=== PATIENT | female | born 1960 | race African-American/Black ===

== ENCOUNTER 2016-07-09 19:36 | Emergency (ER) | payer SELFPAY ==
[~2016-07-09] VITALS: Ht 167.6 cm; Wt 72.6 kg
[2016-07-09 19:40] VITALS: BP 132/88
[2016-07-09] MEDS ORDERED: NAPR500T3 PO (19:56)
--- NOTE | 2016-07-09 19:56 | PHYS DOC ---
Adult General Chief Complaint Chief Complaint: BREAST PAIN/INJURY HPI HPI Patient is a 55 year old female with a pacemaker presents complaining of pain in her right breast that is been present all day today. Pain is throbbing and constant. She feels a little swollen mass just above and deep to the areola. She denies any drainage or redness. No injury. No cough, fever, shortness of breath. No other acute complaints. She does not have a primary care doctor. Review of Systems Review of Systems Constitutional: Denies fever or chills Eyes: Denies change in visual acuity, redness, or eye pain HENT: Denies nasal congestion or sore throat Respiratory: Denies cough or shortness of breath Cardiovascular: Denies chest pain. GI: Denies abdominal pain, nausea, vomiting, bloody stools or diarrhea : Denies dysuria or hematuria Musculoskeletal: Denies back pain or joint pain. Painful mass in right breast. Integument: Denies rash or skin lesions Neurologic: Denies headache, focal weakness or sensory changes Physical Exam Physical Exam Constitutional: Well developed, well nourished, no acute distress, non-toxic appearance. Patient still strongly of alcohol and appears to be heavily intoxicated. HENT: Normocephalic, atraumatic, bilateral external ears normal, oropharynx moist, no oral exudates, nose normal. Eyes: PERRLA, EOMI, conjunctiva normal, no discharge. Neck: Normal range of motion, no tenderness, supple, no stridor. Cardiovascular:Heart rate regular rhythm, no murmur Lungs & Thorax: Bilateral breath sounds clear to auscultation. There is a discrete, firm, tender right breast mass about the size of a golf ball just superior and deep to the area oh. There is no overlying skin changes. No drainage or redness. Abdomen: Bowel sounds normal, soft, no tenderness, no masses, no pulsatile masses. Skin: Warm, dry, no erythema, no rash. Back: Normal to inspection. Extremities: No tenderness, no cyanosis, no edema. Neurologic: Alert and oriented X 3, normal motor function, no focal deficits noted. Psychologic: Intoxicated. EKG EKG [] Radiology/Procedures Radiology/Procedures [] Course & Med Decision Making Course & Med Decision Making Pertinent Labs and Imaging studies reviewed. (See chart for details) Patient is a painful right breast mass that she first noticed today. She also appears to be heavily intoxicated. I have advised that she needs to have close primary care follow-up with an ultrasound and/or mammogram and biopsy to investigate this mass further. I did express to her that given her family history of breast cancer that she reports in her mother, she should take this very seriously and follow-up closely. I'm going to write her for naproxen, and I also advised heat and/or ice for local pain control. Return precautions were discussed and all questions were answered prior to discharge. Dragon Disclaimer Dragon Disclaimer This electronic medical record was generated, in whole or in part, using a voice recognition dictation system. Departure Departure Impression: Primary Impression: mastalgia Additional Impression: Breast mass, right Disposition: 01 HOME, SELF-CARE Condition: STABLE Patient Instructions: Breast Self-Exam, [id number], Breast Tenderness Additional Instructions: You have a tender mass almost the size of a golf ball in her right breast. This may simply be a cyst or a benign growth, but it could also represent breast cancer. Given her family history of breast cancer you are at higher risk. You need to follow up with a primary care provider as soon as possible to have this further investigated. Do not put this off for much longer. If you are able to catch breast cancer early, and outcomes are much better then if you wait until the cancer has had a chance to spread. Take the prescribed naproxen twice daily with meals as needed for pain, new can also take Tylenol hysterectomy bottle in addition to this. Try heating pad or ice packs on the breast to see which works best to relieve any localized breast pain. Scripts Naproxen 500 Mg Tablet1 Tab PO BID PRN PAIN #60 TAB Ref 0 Prov:NATHAN CAMPBELL MD 07/09/16 Problem Qualifiers NATHAN CAMPBELL MD Jul 09, 2016 19:56
[2016-07-09] MEDS ORDERED: KETOROLAC TROMETHAMINE 30 MG/ML SYRINGE. IV ONE (20:00)
== END 2016-07-09 20:11 | disposition home or self-care (01) ==
LOC: ER 19:36
DX: N63 Unspecified lump in breast (principal)
CPT/HCPCS: 96374; 99284; J1885

== ENCOUNTER 2019-04-13 18:17 | Emergency (ER) | payer SELFPAY ==
[~2019-04-13] VITALS: Ht 167.6 cm; Wt 90.7 kg
[~2019-04-13 18:17] MED LIST: NAPR-514 PO
--- NOTE | 2019-04-13 19:33 | PHYS DOC ---
Past Medical History Past Medical History: No Pertinent History Additional Past Medical Histor: pt is not a good historian Past Surgical History: Pacemaker Additional Information: 1 pack/day Alcohol Use: Heavy Drug Use: None Adult General Chief Complaint Chief Complaint: MECHANICAL FALL HPI HPI 58-year-old female presents to the emergency department after fall proximal in 24 hours ago. She worked all day today subsequent had some alcohol now intoxicated presents to the ER with complaints of shortness of breath. She cannot give me any detail with regards to her mechanical fall yesterday unable time she lost consciousness unable tell me she had her head unable tell exactly what hurts. Patient denies nausea/vomiting. Patient denies headache. States she cannot breath. Nothing makes her pain worse, nothing makes her pain better. Review of Systems Review of Systems Constitutional: Denies fever or chills [] Eyes: Denies change in visual acuity, redness, or eye pain [] HENT: Denies nasal congestion or sore throat [] Respiratory: shortness of breath Cardiovascular: No additional information not addressed in HPI [] GI: Denies abdominal pain, nausea, vomiting, bloody stools or diarrhea [] : Denies dysuria or hematuria [] Musculoskeletal: Denies back pain or joint pain [] Integument: Denies rash or skin lesions [] Neurologic: Denies headache, focal weakness or sensory changes [] Endocrine: Denies polyuria or polydipsia [] Patient is intoxicated - ROS is unreliable All other systems were reviewed and found to be within normal limits, except as documented in this note. Current Medications Current Medications Current Medications Medications (Trade) Dose Ordered Sig/Coleen Start Time Stop Time Status Last Admin Dose Admin Info (CONTRAST GIVEN -- Rx MONITORING) 1 each PRN DAILY PRN 04/13/19 21:15 04/15/19 21:14 Iohexol (Omnipaque 300 Mg/ml) 75 ml 1X ONCE 04/13/19 21:00 04/13/19 21:05 DC 04/13/19 21:26 75 ML Potassium Chloride (Klor-Con) 40 meq 1X ONCE 04/13/19 21:00 04/13/19 21:05 DC 04/13/19 21:13 40 MEQ Allergies Allergies Allergies Coded Allergies Type Severity Reaction Last Updated Verified No Known Drug Allergies 07/09/16 No Physical Exam Physical Exam Constitutional: Well developed, well nourished, no acute distress, non-toxic appearance. [] HENT: Normocephalic, atraumatic, bilateral external ears normal, oropharynx moist, no oral exudates, nose normal. [] Eyes: PERRLA, EOMI, conjunctiva normal, no discharge. [] Neck: Normal range of motion, no tenderness, supple, no stridor. [] Cardiovascular:Heart rate regular rhythm, no murmur [] Lungs & Thorax: Bilateral breath sounds clear to auscultation [] Abdomen: Bowel sounds normal, soft, no tenderness, no masses, no pulsatile masses. [] Skin: Warm, dry, no erythema, no rash. [] Back: No tenderness, no CVA tenderness. [] Extremities: No tenderness, no cyanosis, no clubbing, ROM intact, no edema. [] Neurologic: Alert and oriented X 3, no focal deficits noted. [] Psychologic: Affect normal, judgement normal, mood normal. [] Current Patient Data Vital Signs Vital Signs Date Time Temp Pulse Resp B/P (MAP) Pulse Ox O2 Delivery O2 Flow Rate FiO2 04/13/19 21:00 91 20 97 04/13/19 18:50 98.0 111/79 (90) Room Air 98.0 Lab Values Laboratory Tests Test 04/13/19 20:03 White Blood Count 6.5 x10^3/uL (4.0-11.0) Red Blood Count 3.59 x10^6/uL (3.50-5.40) Hemoglobin 12.6 g/dL (12.0-15.5) Hematocrit 36.6 % (36.0-47.0) Mean Corpuscular Volume 102 fL (79-100) H Mean Corpuscular Hemoglobin 35 pg (25-35) Mean Corpuscular Hemoglobin Concent 35 g/dL (31-37) Red Cell Distribution Width 15.4 % (11.5-14.5) H Platelet Count 149 x10^3/uL (140-400) Neutrophils (%) (Auto) 45 % (31-73) Lymphocytes (%) (Auto) 45 % (24-48) Monocytes (%) (Auto) 7 % (0-9) Eosinophils (%) (Auto) 2 % (0-3) Basophils (%) (Auto) 1 % (0-3) Neutrophils # (Auto) 2.9 x10^3/uL (1.8-7.7) Lymphocytes # (Auto) 3.0 x10^3/uL (1.0-4.8) Monocytes # (Auto) 0.5 x10^3/uL (0.0-1.1) Eosinophils # (Auto) 0.1 x10^3/uL (0.0-0.7) Basophils # (Auto) 0.0 x10^3/uL (0.0-0.2) Sodium Level 149 mmol/L (136-145) H Potassium Level 3.2 mmol/L (3.5-5.1) L Chloride Level 108 mmol/L (98-107) H Carbon Dioxide Level 25 mmol/L (21-32) Anion Gap 16 (6-14) H Blood Urea Nitrogen 21 mg/dL (7-20) H Creatinine 1.1 mg/dL (0.6-1.0) H Estimated GFR (Cockcroft-Gault) 61.5 BUN/Creatinine Ratio 19 (6-20) Glucose Level 100 mg/dL (70-99) H Calcium Level 9.2 mg/dL (8.5-10.1) Total Bilirubin 0.2 mg/dL (0.2-1.0) Aspartate Amino Transferase (AST) 82 U/L (15-37) H Alanine Aminotransferase (ALT) 57 U/L (14-59) Alkaline Phosphatase 80 U/L (46-116) Total Protein 7.9 g/dL (6.4-8.2) Albumin 3.9 g/dL (3.4-5.0) Albumin/Globulin Ratio 1.0 (1.0-1.7) Laboratory Tests 04/13/19 20:03 Laboratory Tests 04/13/19 20:03 EKG EKG [] Radiology/Procedures Radiology/Procedures [facility] [address] [place], [place] [id number] IMAGING REPORT Signed PATIENT: BENJI SALINAS ACCOUNT: [id number] : 1960 LOCATION: ER AGE: 58 SEX: F EXAM STATUS: REG ER ORD. PHYSICIAN: GUERITA BARNETT MD REASON: fall unknown LOC, Intoxication PROCEDURE: CT CHEST ABD PELVIS W/CONTRAST EXAM: CT OF THE CHEST, ABDOMEN AND PELVIS WITH CONTRAST. HISTORY: Fall, trauma. TECHNIQUE: Computed tomography of the chest, abdomen and pelvis was performed after the intravenous administration of iodinated contrast. COMPARISON: None. FINDINGS: Bone windows reveal no suspicious lesions. There are no pathologically enlarged mediastinal or axillary lymph nodes. There is no pleural or pericardial effusion. The heart is mildly enlarged. A right-sided pacemaker has its leads in the right atrium and right ventricle. There are surgical clips along the anterior base of the neck. Bone windows reveal mild to moderate centrilobular emphysema in the apices. A calcified granuloma is noted in the right middle lobe. There is bilateral dependent atelectasis. Diffuse hepatic steatosis is severe. There are calcified granulomas in the spleen. The pancreatic duct is upper limits of normal caliber at 3 mm. A left renal cyst measures 1.6 cm. The gallbladder is decompressed. The right kidney and adrenal glands are unremarkable. The appendix is not inflamed. There is no small bowel obstruction. There is no free fluid or air. IMPRESSION: 1. No evidence of acute injury to the chest, abdomen or pelvis. 2. Mild cardiomegaly. 3. Mild to moderate centrilobular emphysema 4. Severe diffuse hepatic steatosis. *One or more of the following individualized dose reduction techniques were utilized for this examination: 1. Automated exposure control. 2. Adjustment of the mA and/or kV according to patient size. 3. Use of iterative reconstruction technique. Electronically signed by: Melvin Rees MD (04/13/2019 9:51 PM) [facility] DICTATED and SIGNED BY: HOANG REES MD DATE: 04/13/192150 [] [facility] [address] [place] [address] IMAGING REPORT Signed PATIENT: BENJI SALINAS ACCOUNT: [id number] : 1960 LOCATION: ER AGE: 58 SEX: F EXAM STATUS: REG ER ORD. PHYSICIAN: GUERITA BARNETT MD REASON: fall unknown LOC, Intoxication PROCEDURE: CT HEAD AND CERVICAL SPINE WO EXAM: 1. CT HEAD WITHOUT CONTRAST. 2. CT CERVICAL SPINE WITHOUT CONTRAST. HISTORY: Fall, altered mental status. TECHNIQUE: Computed tomography of the head and cervical spine was performed without intravenous contrast. COMPARISON: None. FINDINGS: There is no intracranial hemorrhage. Hypoattenuation within the white matter indicates moderate chronic microangiopathic change. The ventricles are normal in size and position. The visualized paranasal sinuses appear clear. The orbits are unremarkable. The temporal bones are unremarkable. The calvarium reveals no suspicious lesions. Alignment is maintained. The craniocervical junction is unremarkable. No fractures are identified. Degenerative disc disease is moderate at C5-6 and minimal elsewhere. There is no prevertebral soft tissue swelling. At C2-3, there is no significant stenosis. At C3-4, there is a small posterior disc bulge. Uncovertebral osteoarthritis is mild bilaterally. Neural foraminal stenosis is moderate on the right. At C4-5, there is a small posterior disc bulge. Uncovertebral osteoarthritis is moderate bilaterally. Neural foraminal stenosis is moderate on the right. At C5-6, there is a moderate posterior disc bulge. Central canal stenosis appears moderate. Uncovertebral osteoarthritis is moderate to severe on the left and mild on the right. Neural foraminal stenosis appears moderate to severe on the left. At C6-7, there is no significant stenosis. Right pacemaker is partially visualized. There is mild to moderate centrilobular emphysema in the apices. IMPRESSION: 1. No acute intracranial findings. 2. Moderate chronic microangiopathic white matter change. 3. No cervical fracture or malalignment. 4. Central canal stenosis appears moderate at C5-6. Neural foraminal stenosis is up to moderate to severe on the left at this level. MRI could further assess stenosis if there is persistent concern. *One or more of the following individualized dose reduction techniques were utilized for this examination: 1. Automated exposure control. 2. Adjustment of the mA and/or kV according to patient size. 3. Use of iterative reconstruction technique. Electronically signed by: Melvin Rees MD (04/13/2019 9:40 PM) [facility] DICTATED and SIGNED BY: HOANG REES MD DATE: 04/13/192139 Course & Med Decision Making Course & Med Decision Making Pertinent Labs and Imaging studies reviewed. (See chart for details) []58-year-old female presents to the emergency department after fall proximal in 24 hours ago. She worked all day today subsequent had some alcohol now intoxicated presents to the ER with complaints of shortness of breath. She cannot give me any detail with regards to her mechanical fall yesterday unable t jordan she lost consciousness unable tell me she had her head unable tell exactly what hurts. Patient denies nausea/vomiting. Patient denies headache. States she cannot breath. Nothing makes her pain worse, nothing makes her pain better. Dragon Disclaimer Dragon Disclaimer This electronic medical record was generated, in whole or in part, using a voice recognition dictation system. Departure Departure Impression: Primary Impression: Fall Additional Impression: Intoxication Disposition: HOME, SELF-CARE Condition: STABLE Referrals: NO PCP (PCP) Patient Instructions: Alcohol Intoxication, [id number], Fall Prevention and Home Safety, [id number] Additional Instructions: Recommend follow up with PCP 3 - 5 days Return to the ER with worsening symptoms, intractable pain, fever, altered mental status Tylenol/Motrin as needed for pain Problem Qualifiers Primary Impression: Fall Encounter type: initial encounter Qualified Codes: W19.XXXA - Unspecified fall, initial encounter GUERITA BARNETT MD Apr 13, 2019 19:33
[2019-04-13 20:26] LABS: BASO % 1 % (0-3); EOS # 0.1 x10^3/uL (0.0-0.7); EOS % 2 % (0-3); HEMATOCRIT 36.6 % (36.0-47.0); HEMOGLOBIN 12.6 g/dL (12.0-15.5); LYMPH % 45 % (24-48); MEAN CORPUSCULAR HEMOGLOBIN 35 pg (25-35); MEAN CORPUSCULAR HGB CONC 35 g/dL (31-37); MEAN CORPUSCULAR VOLUME 102 fL (79-100); MONO # 0.5 x10^3/uL (0.0-1.1); MONO % 7 % (0-9); NEUT # 2.9 x10^3/uL (1.8-7.7); NEUT % 45 % (31-73); PLATELET COUNT 149 x10^3/uL (140-400); RED BLOOD COUNT 3.59 x10^6/uL (3.50-5.40); RED CELL DISTRIBUTION WIDTH 15.4 % (11.5-14.5); WHITE BLOOD COUNT 6.5 x10^3/uL (4.0-11.0)
[2019-04-13 20:48] LABS: ALBUMIN 3.9 g/dL (3.4-5.0); CALCIUM 9.2 mg/dL (8.5-10.1); CREATININE 1.1 mg/dL (0.6-1.0); GFR 61.5; POTASSIUM 3.2 mmol/L (3.5-5.1); TOTAL BILIRUBIN 0.2 mg/dL (0.2-1.0); TOTAL PROTEIN 7.9 g/dL (6.4-8.2)
[2019-04-13] MEDS ORDERED: POTASSIUM CHLORIDE 20 MEQ TABLET.ER. PO ONE (21:00)
[2019-04-13] MEDS ORDERED: IOHEXOL 300 MG/ML 100ML VIAL. IV ONE (21:00)
[2019-04-13] MEDS ORDERED: CONTRAST GIVEN. MC PRN (21:15)
--- NOTE | 2019-04-13 21:43 | RAD ---
EXAM: 1. CT HEAD WITHOUT CONTRAST. 2. CT CERVICAL SPINE WITHOUT CONTRAST. HISTORY: Fall, altered mental status. TECHNIQUE: Computed tomography of the head and cervical spine was performed without intravenous contrast. COMPARISON: None. FINDINGS: There is no intracranial hemorrhage. Hypoattenuation within the white matter indicates moderate chronic microangiopathic change. The ventricles are normal in size and position. The visualized paranasal sinuses appear clear. The orbits are unremarkable. The temporal bones are unremarkable. The calvarium reveals no suspicious lesions. Alignment is maintained. The craniocervical junction is unremarkable. No fractures are identified. Degenerative disc disease is moderate at C5-6 and minimal elsewhere. There is no prevertebral soft tissue swelling. At C2-3, there is no significant stenosis. At C3-4, there is a small posterior disc bulge. Uncovertebral osteoarthritis is mild bilaterally. Neural foraminal stenosis is moderate on the right. At C4-5, there is a small posterior disc bulge. Uncovertebral osteoarthritis is moderate bilaterally. Neural foraminal stenosis is moderate on the right. At C5-6, there is a moderate posterior disc bulge. Central canal stenosis appears moderate. Uncovertebral osteoarthritis is moderate to severe on the left and mild on the right. Neural foraminal stenosis appears moderate to severe on the left. At C6-7, there is no significant stenosis. Right pacemaker is partially visualized. There is mild to moderate centrilobular emphysema in the apices. IMPRESSION: 1. No acute intracranial findings. 2. Moderate chronic microangiopathic white matter change. 3. No cervical fracture or malalignment. 4. Central canal stenosis appears moderate at C5-6. Neural foraminal stenosis is up to moderate to severe on the left at this level. MRI could further assess stenosis if there is persistent concern. *One or more of the following individualized dose reduction techniques were utilized for this examination: 1. Automated exposure control. 2. Adjustment of the mA and/or kV according to patient size. 3. Use of iterative reconstruction technique. Electronically signed by: Melvin Rees MD (04/13/2019 9:40 PM) [facility]
--- NOTE | 2019-04-13 21:54 | RAD ---
EXAM: CT OF THE CHEST, ABDOMEN AND PELVIS WITH CONTRAST. HISTORY: Fall, trauma. TECHNIQUE: Computed tomography of the chest, abdomen and pelvis was performed after the intravenous administration of iodinated contrast. COMPARISON: None. FINDINGS: Bone windows reveal no suspicious lesions. There are no pathologically enlarged mediastinal or axillary lymph nodes. There is no pleural or pericardial effusion. The heart is mildly enlarged. A right-sided pacemaker has its leads in the right atrium and right ventricle. There are surgical clips along the anterior base of the neck. Bone windows reveal mild to moderate centrilobular emphysema in the apices. A calcified granuloma is noted in the right middle lobe. There is bilateral dependent atelectasis. Diffuse hepatic steatosis is severe. There are calcified granulomas in the spleen. The pancreatic duct is upper limits of normal caliber at 3 mm. A left renal cyst measures 1.6 cm. The gallbladder is decompressed. The right kidney and adrenal glands are unremarkable. The appendix is not inflamed. There is no small bowel obstruction. There is no free fluid or air. IMPRESSION: 1. No evidence of acute injury to the chest, abdomen or pelvis. 2. Mild cardiomegaly. 3. Mild to moderate centrilobular emphysema 4. Severe diffuse hepatic steatosis. *One or more of the following individualized dose reduction techniques were utilized for this examination: 1. Automated exposure control. 2. Adjustment of the mA and/or kV according to patient size. 3. Use of iterative reconstruction technique. Electronically signed by: Melvin Rees MD (04/13/2019 9:51 PM) [facility]
[2019-04-13 21:58] VITALS: BP 111/75
[2019-04-14] MEDS ORDERED: IOHEXOL 300 MG/ML 100ML VIAL. ONE (02:04)
== END 2019-04-13 22:10 | disposition home or self-care (01) ==
LOC: ER 18:17
DX: F10.229 Alcohol dependence with intoxication, unspecified (principal); R06.02 Shortness of breath; F17.200 Nicotine dependence, unspecified, uncomplicated; Z95.0 Presence of cardiac pacemaker; Y90.9 Presence of alcohol in blood, level not specified; W18.39XA Other fall on same level, initial encounter; Y93.89 Activity, other specified; Y92.89 Other specified places as the place of occurrence of the external cause; Y99.8 Other external cause status
CPT/HCPCS: 36415; 70450; 71260; 72125; 74177; 80053; 85025; 99285; Q9967